=== PATIENT | female | born 1935 | race Caucasian/White ===

== ENCOUNTER 2016-09-16 14:53 | Observation (INO) | payer MEDICARE, OTHER ==
[2016-09-16] MEDS ORDERED: Cetirizine* 10 MG TAB PO PRN (18:15)
[2016-09-16] MEDS ORDERED: ZOSYN 3.375 GM ONE TIME DOSE-OVER 30 MINUTES IVPB (18:15)
[2016-09-16] MEDS ORDERED: Artificial Tears* 15 ML BTL BOTH EYES PRN (18:27)
[2016-09-16] MEDS ORDERED: Olopatadine 0.2% (NF) 1 DROP BTL BOTH EYES PRN (18:28)
[2016-09-16] MEDS ORDERED: CALCIUM CARBONATE PO PRN (18:30)
[2016-09-16] MEDS ORDERED: FAMOTIDINE PO PRN (18:30)
[2016-09-16] MEDS ORDERED: MAGNESIUM HYDROXIDE PO PRN (18:30)
[2016-09-16] MEDS ORDERED: D5W 1/2 NS KCl 20 Meq 1000 ML* 1,000 ML IV SCH (19:00)
[2016-09-16] MEDS ORDERED: VAGIFEM TOPICAL SCH (21:00)
--- NOTE | 2016-09-16 21:12 | CONS ---
CONSULTATION REPORT: DATE OF CONSULTATION: 09/16/16 REASON FOR CONSULTATION: Hematochezia, diarrhea, and abdominal discomfort. HISTORY OF PRESENT ILLNESS: This is an 81-year-old woman quite healthy with a history of hypertension, presenting with 24 hours of initially diarrhea followed by hematochezia. The patient has been feeling well and has no complaints for the last several months. However, about 2 days ago, she developed sudden onset of abdominal cramps and that was followed by loose explosive stools. Since then she has had repeated episodes of hematochezia with bright red blood per rectum associated with some mild cramping. It was occurring all last night. She went to see her primary doctor who advised her to come to the hospital for a CAT scan, which I did review, which demonstrated evidence of inflammatory change/colitis involving the descending and sigmoid colon. Other data include a blood count with a white count of 10.2, hemoglobin of 13.5. The patient on interview this afternoon states that she is feeling somewhat better. She continues to have a small amount of dark red blood. The patient denies any prior history of GI bleeding. She has had multiple colonoscopies in her life due to her family history of colon cancer (her father in his 60s had colon cancer). Her last colonoscopy was in 2011, which was a normal study. She denies any weight loss, melena, nausea or vomiting. She has had no exposure to individuals with any GI infection. She has not had no travel history. PAST MEDICAL HISTORY: Her past medical history does include hypertension. PAST SURGICAL HISTORY: Hysterectomy many years ago for benign disease. MEDICATIONS: Lisinopril and hydrochlorothiazide. FAMILY HISTORY: Notable for her father and a grandparent with colon cancer. REVIEW OF SYSTEMS: She states that her weight has been stable. Her bowel function has been normal, though she does have a tendency towards gas and flatus. She occasionally takes antacids and H2 blockers. The patient does exercise. She does Pilates pretty regularly and she states that she went on a particularly long walk uphill over the weekend, which was more strenuous than she usually does. PHYSICAL EXAMINATION: She is a well-appearing woman, in no acute distress. Temperature is 97.9, blood pressure is 143/76, heart rate is 71 and regular. She is not pale. She appears clinically euvolemic. Lungs are clear. Cardiac exam reveals a regular rhythm without murmur. Abdomen shows no distention. There is mild tenderness in the left lower quadrant without rebound or guarding. Bowel sounds are normoactive. DIAGNOSTIC STUDIES/LAB DATA: Additional data include a C-reactive protein of 16.4, albumin of 4.1, BUN of 15, creatinine of 0.55. IMPRESSION: An 81-year-old woman presenting with sudden onset of diarrhea followed by hematochezia who has some tenderness in the left lower quadrant on exam. Her CT scan does show some relatively [id number] inflammatory change involving the sigmoid colon and descending colon and her presentation is quite classic for ischemic colitis. The greater exertion with the long walk she had this weekend perhaps provoked a transient reduction in mesenteric blood flow leading to this. We talked about the fact; however, that we usually do not know the actual trigger for this. Less likely diagnosis would be infectious colitis. At this point, I agree with supportive care, IV fluids, empiric antibiotics to prevent superimposed infection and obtaining stool cultures. If she remains well tomorrow, she likely can be discharged and that was discussed with the patient. Given her fairly recent colonoscopy and classic presentation for ischemic colitis, I do not think she necessarily needs a follow-up colonoscopy; however, if she continues to have bleeding that certainly would be the next recommendation. CC: Debbie Fowler MD* [id number]/[facility] #: [id number] JAN
--- NOTE | 2016-09-16 23:00 | HP ---
HISTORY AND PHYSICAL: DATE OF ADMISSION: 09/16/16 HISTORY OF PRESENT ILLNESS: Jyoti Rivero is an 82-year-old woman admitted with probable ischemic colitis. The patient was in her usual state of health until yesterday morning when she had a large amount of yellow loose stool followed by bright red blood with mucus. Over the course of the day, she had more than a dozen episodes of rectal bleeding. She had some clots of blood as well. She had lower abdominal cramping prior to the episodes. Throughout this morning, she has been having bloody discharge about every 2 hours. She has had increasing gas and occasional constipation for a couple of days up until this started yesterday, but prior to this she was generally having bowel movements once or twice a day. She had no nausea or vomiting. Her appetite has been diminished. She has eaten nothing in the past day. She has been drinking some root beer. She has not been taking aspirin or NSAIDs routinely. Her last colonoscopy had been in 2011, which was unremarkable. She was sent to get a CAT scan today, which showed thickening of the descending colon suggestive of ischemic colitis and she is being admitted at this time. PAST MEDICAL HISTORY: Otherwise significant for the following medical problems: 1. Hypertension. 2. History of atrophic vaginitis. 3. Hyperlipidemia. 4. History of gastroesophageal reflux disease. 5. History of paroxysmal supraventricular tachycardia. 6. Scoliosis. 7. Osteopenia. 8. History of elevated calcium with normal PTH levels. 9. Osteoarthritis. 10. History of elevated MCV with normal B12 and folate levels. 11. Tinnitus. 12. History of BPPV. 13. History of Dupuytren's contracture. 14. Microscopic hematuria, benign. 15. Carpal tunnel syndrome. PAST SURGICAL HISTORY: 1. T and A childhood. 2. PARISH/BSO in 1995. 3. Breast biopsy x2 (benign). Most recent breast biopsy was in 2009. 4. In 2009, she underwent excision of a dysplastic nevus. 5. She has had foot surgery. 6. 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 7. She is status post excision of a verruca vulgaris of the eyelid. 8. She is status post marsupialization of a Bartholin cyst. CURRENT MEDICATIONS: 1. Pepto-Bismol 262 mg p.r.n. 2. Simethicone 180 mg p.r.n. 3. Hydrochlorothiazide 25 mg one-half tablet daily. 4. Lisinopril 2.5 mg daily. 5. Vagifem 10 mcg vaginal tablets every other day. 6. Triamcinolone acetonide 0.1% topical ointment daily. 7. Pataday 0.2% eyedrops daily as needed for allergies. 8. Pepcid complete 1 chewable tablet twice daily as needed for indigestion or heartburn. 9. Loratadine 10 mg daily as needed. 10. PreserVision 2 capsules every day. 11. Tylenol 1 tablet as needed. 12. Systane eyedrops p.r.n. 13. Lamisil topical cream as needed apply to toes. 14. Maalox advanced 1000/60 mg chewable as needed. 15. Vitamin D3 1000 units daily. ALLERGIES: IBUPROFEN caused hypertension. BUSPAR caused worsening anxiety. FAMILY HISTORY: Noncontributory. SOCIAL AND PERSONAL HISTORY: The patient is a retired professor. She is . She lives in her own home. She travels a lot. She has grown children that live out of the area. HABITS: Tobacco: None. She is a former smoker, but has not smoked recently. Alcohol: Generally has 6 drinks per week. Caffeine: 1 to 2 cups daily of coffee. REVIEW OF SYSTEMS: Generally, she had been feeling well until the present illness. Skin: Negative. HEENT: Negative. Nodes: Negative. Heme: Negative. Endocrine: History of enlarged thyroid. Breast: See above. Respiratory: Negative. Cardiovascular: See above. GI: See above. : Negative. QA TEST ANALYST: See above. Musculoskeletal: History of scoliosis, history of knee pain. Neuro: See above. PHYSICAL EXAMINATION GENERAL: She is a thin woman, in no acute distress. VITAL SIGNS: Blood pressure 140/70 sitting, orthostatic blood pressure is 160/ 78 lying, sitting 150/68, standing 130/80 with slight lightheadedness with position changes, pulse 80, respirations 16, temperature 97.5, O2 sat 99%, weight 114 pounds (lost three and a half pounds since 06/10/16). SKIN: Warm and dry. HEENT: Mouth: Pharynx unremarkable. NECK: Supple without masses. Nodes without adenopathy. LUNGS: Chest clear. HEART: Normal S1 and S2. There are no murmurs, gallops, or rubs. ABDOMEN: Soft with mild tenderness in the left upper and left lower quadrants. No rebound. RECTAL: Without masses. There is blood in the rectal vault. Positive guaiac. EXTREMITIES: Without cyanosis, clubbing, or edema. NEUROLOGIC: Without gross focal or lateralizing signs. LABORATORY DATA: CBC: WBC 10.2, H and H 13.5/40, MCV 96, PLT 363,000. CMP: Sodium 137, potassium 3.8, chloride 100, CO2 26, BUN and creatinine 15/0.55, glucose 95. Rest of the comprehensive metabolic panel is within normal limits. CRP is slightly elevated at 16.43. CT of the abdomen and pelvis showed compression deformity of L3. She has mucosal thickening with pericolonic inflammatory change along the descending colon suggestive of colitis. There was also punctate calcification of the pancreas suggestive of chronic pancreatitis. IMPRESSION: The patient with likely ischemic colitis being admitted for broad- spectrum antibiotics, IV fluids, n.p.o. I will not be giving her heparin. She will be ambulatory and I do not want to exacerbate the rectal bleeding. She is a full code. Her labs will be followed. She is receiving IV fluids. I am going to hold her diuretics for now. [id number]/[facility] #: [id number] MTDD
[2016-09-16] MEDS: Piperac/Tazob 3.375 gm in NS* 3.375 GM/100 ML BAG IVPB SCH (23:55)
[2016-09-17 05:40] LABS: Hematocrit 36 % (35-47); Mean Corpuscular HGB Conc 33 g/dl (31-36); Mean Corpuscular Hemoglobin 32 pg (27-31); Mean Corpuscular Volume 97 fL (80-97); Mean Platelet Volume 10 um3 (7.4-10.4); Red Blood Count 3.75 10^6/ul (4.0-5.4); Red Cell Distribution Width 14 % (10.5-15); White Blood Count 11.5 10^3/ul (3.5-10.8)
[2016-09-17 05:54] LABS: Albumin 3.3 g/dL (3.2-5.2); BUN/Creatinine Ratio 16.7 (8-20); C Reactive Protein 26.09 mg/L (< 5.00); Calcium 8.9 mg/dL (8.6-10.3); EGFR African American 123.7 (>60); EGFR Non-African American 96.2 (>60); Globulin 2.5 g/dL (2-4); Potassium 3.6 mmol/L (3.5-5.0); Total Bilirubin 0.8 mg/dL (0.2-1.0); Total Protein 5.8 g/dL (6.4-8.9)
[2016-09-17 07:54] VITALS: BP 117/56
[2016-09-17] MEDS: Piperac/Tazob 3.375 gm in NS* 3.375 GM/100 ML BAG IVPB SCH (08:22)
[2016-09-17] MEDS ORDERED: Triamcinolone 0.025% OINT * 15 GM TUBE TOPICAL SCH (09:00)
[2016-09-17] MEDS ORDERED: Lisinopril TAB* 5 MG PO SCH (09:00)
--- NOTE | 2016-09-18 08:09 | DS ---
DISCHARGE SUMMARY: DATE OF ADMISSION: 09/16/16 DATE OF DISCHARGE: 09/17/16 DISCHARGE DIAGNOSES: 1. Probable ischemic colitis. 2. History of hypertension. 3. Allergies. 4. History of atrophic vaginitis. 5. Hyperlipidemia. 6. History of gastroesophageal reflux disease. 7. History of paroxysmal supraventricular tachycardia. HISTORY: Jyoti Rivero is an 81-year-old woman admitted with crampy abdominal pain and rectal bleeding. Please see the dictated admission note for details of the present illness, past medical history, family history, social and personal history, review of systems, and physical examination. LABORATORY DATA: CBC on 09/16/16: WBC 10.2, H and H 13.5/40, MCV 96, PLT 363K. CBC on 09/17/16: WBC 11.5, H and H 12/36, MCV 97%, PLT 323K. Chemistries on 09/16/16: Sodium 137, potassium 3.8, chloride 100, CO2 26, BUN and creatinine 15/0.55, glucose 95. Rest of the comprehensive metabolic panel is within normal limits. C-reactive protein was 16.43. Repeat labs on were essentially unchanged except for the CRP had gone up to 26.09. Stool for C and S is pending. IMAGING: Abdominopelvis CT done on 09/16/16 showed mucosal thickness with pericolonic inflammatory change along the descending sigmoid colon suggestive of colitis, punctate calcification of the pancreas suggestive of possible chronic pancreatitis (no history of this). CONSULTATION: GI, 09/16/16, Dr. Gavin Uriostegui, felt that she had diarrhea followed by hematochezia due to mild to moderate ischemic colitis seen on CAT scan. He agreed with supportive care, IV fluids, empiric antibiotics. He thought that if she seemed well the following day (already looked better when he saw her on 09/16/16). She could be discharged. He placed her on a low residue diet. He felt that she did not need a followup colonoscopy as she had had a fairly recent colonoscopy and her presentation was classic for ischemic colitis. He did feel that a colonoscopy would be needed if she had continued bleeding. When I spoke to him on 09/17/16, he did not recommend continued antibiotics as she was feeling quite well. HOSPITAL COURSE: The patient was admitted. She was placed on IV fluids, initially NPO, and then a low residue diet after Dr. Uriostegui saw her later in the day on 09/16/16. She had a low residue dinner on 09/16/16 and breakfast on 09/17/16. She tolerated this well. When seen, she was feeling quite well. She had had 4 loose stools but were improving with no further blood. Her abdomen was soft, nontender. There were normal bowel sounds. Her labs were as noted above. It was felt that she was improving and that she could be discharged without antibiotics after discussion with Dr. Uriostegui. She should follow up with me in 4 to 7 days. Her diet is to be low residue with plenty of fluids. DISCHARGE MEDICATIONS: Her medications are to be as follows: 1. Hydrochlorothiazide 25 mg one-half daily, will restart after her appointment with me next week. 2. Lisinopril 2.5 mg one daily. 3. Vagifem 10 1 every other day. 4. Triamcinolone ointment daily. 5. Pataday eye drops as needed. 6. Pepcid complete twice a day as needed. 7. Loratadine 10 mg once a day as needed. 8. PreserVision 2 daily. 9. Tylenol as needed. 10. Pepto-Bismol as needed. 11. Simethicone as needed. 12. Vitamin D3 1000 units daily. 13. Maalox as needed. 14. Saline nose spray as needed. 15. Systane eye drops as needed. FOLLOWUP: She is to follow up with me in 4 to 7 days, at which time she should have a CBC, CRP, BMP. [id number]/[facility] #: [id number] [facility]
== END 2016-09-17 13:55 | disposition home or self-care (01) ==
LOC: MED 14:53 → INTOOBSV 14:53
PROVIDERS: ADMIT Internal Medicine Geriatric Medicine; ATTEND Internal Medicine Geriatric Medicine
DX: R10.30 Lower abdominal pain, unspecified (principal); R19.7 Diarrhea, unspecified; K92.1 Melena; I10 Essential (primary) hypertension; E78.5 Hyperlipidemia, unspecified; K21.9 Gastro-esophageal reflux disease without esophagitis; I47.1 Supraventricular tachycardia; Z88.6 Allergy status to analgesic agent; Z88.8 Allergy status to other drugs, medicaments and biological substances; Z87.891 Personal history of nicotine dependence; K62.5 Hemorrhage of anus and rectum; R10.817 Generalized abdominal tenderness; K86.89 Other specified diseases of pancreas
CPT/HCPCS: 36415; 74177; 80053; 82272; 83615; 85027; 86140; 87045; 87046; 87899; 96374; 96375; A9270-GY; G0378; J2543; Q9967